=== PATIENT | male | born 1960 | race Caucasian/White ===

== ENCOUNTER 2016-11-23 15:18 | Emergency (ER) | payer BC ==
[~2016-11-23] VITALS: Ht 180.3 cm; Wt 88.5 kg
[2016-11-23 15:20] VITALS: BP 150/80; PULSE 90; RESP 17; TEMP 98.2; O2SAT 98
[2016-11-23 15:30] VITALS: O2SAT 99
[2016-11-23 15:33] VITALS: BP 155/86; PULSE 81; RESP 15; O2SAT 99
[2016-11-23] MEDS ORDERED: SODIUM CHLOR 0.9% 1000 ML INJ 1,000 ML IV ONE ×2 (15:45)
[2016-11-23] MEDS ORDERED: CYAN1TAB24 PO (15:46)
[2016-11-23] MEDS ORDERED: BENI40TA7 PO (15:46)
[2016-11-23] MEDS ORDERED: ZOLP12.5 PO (15:46)
[2016-11-23] MEDS ORDERED: DOLU1TAB PO (15:46)
[2016-11-23] MEDS ORDERED: SELE1TAB PO (15:46)
[2016-11-23] MEDS ORDERED: ENTE325T PO (15:46)
[2016-11-23] MEDS ORDERED: GLUC500T4 PO (15:46)
[2016-11-23] MEDS ORDERED: LOTR5CAP PO (15:46)
[2016-11-23] MEDS ORDERED: COQ150CA (15:46)
[2016-11-23] MEDS ORDERED: TYLE325T PO (15:46)
[2016-11-23] MEDS ORDERED: XARE20TA PO (15:46)
[2016-11-23] MEDS ORDERED: VALA1TAB PO (15:46)
[2016-11-23] MEDS ORDERED: FINA5TAB2 PO (15:46)
[2016-11-23] MEDS ORDERED: ATOR40TA16 PO (15:46)
[2016-11-23] MEDS ORDERED: [UNRECOGNIZED DRUG - CODE] PO (15:46)
[2016-11-23] MEDS ORDERED: VITA2000 PO (15:46)
[2016-11-23] MEDS ORDERED: VIAG100T PO (15:46)
[2016-11-23] MEDS ORDERED: LEXA10TA PO (15:46)
[2016-11-23] MEDS ORDERED: FOLI400T PO (15:46)
[2016-11-23] MEDS ORDERED: EMTR1TAB4 PO (15:46)
[2016-11-23] MEDS ORDERED: ANDROGEL TOPICAL (15:46)
[2016-11-23] MEDS ORDERED: OMEG1CAP28 PO (15:46)
--- NOTE | 2016-11-23 15:48 | PD ---
HPI Chief Complaint: General Weakness Time Seen by Provider: 15:36 Travel History International Travel<30 days: No Contact w/Intl Traveler<30days: No Traveled to known affect area: No History of Present Illness HPI 56-year-old male complains of generalized malaise and weakness and near- syncope. Patient states that he has been working outside in the yard since this morning. Patient started having feeling of generalized malaise and weakness and has a near-syncope episode. Patient states that he has not had much to drink today. Patient denies any headache. Patient denies any visual change. Patient denies any neck pain. Patient denies any chest pain or shortness of breath. Patient denies abdominal pain. Patient denies any nausea vomiting diarrhea. Patient denies any fever chills. Patient has history of HIV positive. Patient's on medication for that. Patient has history of CAD status post [place] and stents placement 8 years ago. PFSH Past Medical History Hx Anticoagulant Therapy: Yes (XERELTO) Autoimmune Disease: Yes (HIV +) Cardiovascular Problems: Yes (AK, 2 STENTS) Myocardial Infarction: Yes (WITH STENTS ) Social History Alcohol Use: Yes (1 beer a day) Tobacco Use: No Substance Use: No Allergies-Medications (Allergen,Severity, Reaction): Coded Allergies: No Known Allergies (Unverified , 11/23/16) Reported Meds & Prescriptions Reported Meds & Active Scripts Active Reported Tylenol (Acetaminophen) 325 Mg Tab 500 Mg PO Q6H PRN Viagra (Sildenafil Citrate) 100 Mg Tab 100 Mg PO DAILY PRN Zolpidem ER (Zolpidem Tartrate) 12.5 Mg Tab 12.5 Mg PO HS PRN Enteric Coated Aspirin (Aspirin) 325 Mg Tabdr 81 Mg PO DAILY B12 (Cyanocobalamin) 1,000 Mcg Tab 2,500 Tab PO DAILY Folic Acid 0.4 Mg Tab 400 Mcg PO DAILY Lexapro (Escitalopram Oxalate) 10 Mg Tab 10 Mg PO DAILY Xarelto (Rivaroxaban) 20 Mg Tab 20 Mg PO DAILY Atorvastatin (Atorvastatin Calcium) 40 Mg Tab 40 Mg PO HS Valacyclovir (Valacyclovir HCl) 1,000 Mg Tab 500 Mg PO DAILY Tivicay (Dolutegravir Sodium) 50 Mg Tab 50 Mg PO HS Descovy (Emtricitabine-Tenofovir Alafenamide) 200-25 mg Tab 1 Tab PO DAILY Glucosamine-Chondroitin 500-400 Mg Tab 1 Tab PO DAILY Coq10 (Coenzyme Q10 (Ubidecarenone)) 50 Mg Cap Beta Carotene 25,000 Unit Cap 25,000 Units PO DAILY Vitamin D3 (Cholecalciferol) 2,000 Unit Cap 2,000 Units PO DAILY Selenium 200 Mcg Tab 200 Mg PO DAILY [Androgel 1.62] 1 Appl TOPICAL DAILY [id number] Ethyl Esters 1 Gm Cap 1 Gm PO DAILY Lotrel 5-40 mg Capsule (Amlodipine Besylate/Benazepril) 5 Mg-40 Mg Capsule 1 Tab PO DAILY Benicar Hct (Olmesartan-Hydrochlorothiazide) 40-25 mg Tab 1 Tab PO DAILY Finasteride 5 Mg Tab 2.5 Mg PO DAILY Do not crush. Review of Systems General / Constitutional: No: Fever Eyes: No: Visual changes HENT: No: Headaches Cardiovascular: No: Chest Pain or Discomfort Respiratory: No: Shortness of Breath Gastrointestinal: No: Abdominal Pain Genitourinary: No: Dysuria Musculoskeletal: No: Pain Skin: No Rash Neurologic: No: Weakness Psychiatric: No: Depression Endocrine: No: Polydipsia Hematologic/Lymphatic: No: Easy Bruising Physical Exam Narrative GENERAL: Well-nourished, well-developed patient. SKIN: Focused skin assessment warm/dry. HEAD: Normocephalic. EYES: No scleral icterus. No injection or drainage. NECK: Supple, trachea midline. No JVD or lymphadenopathy. CARDIOVASCULAR: Regular rate and rhythm without murmurs, gallops, or rubs. RESPIRATORY: Breath sounds equal bilaterally. No accessory muscle use. GASTROINTESTINAL: Abdomen soft, non-tender, nondistended. MUSCULOSKELETAL: No cyanosis, or edema. BACK: Nontender without obvious deformity. No CVA tenderness. Neurologic exam normal. Data Data Last Documented VS Vital Signs Date Time Temp Pulse Resp B/P (MAP) Pulse Ox O2 Delivery O2 Flow Rate FiO2 11/23/16 15:33 81 15 155/86 (109) 99 Room Air 11/23/16 15:20 98.2 Orders Orders Sodium Chlor 0.9% 1000 Ml Inj (Ns 1000 M (11/23/16 15:45) Sodium Chlor 0.9% 1000 Ml Inj (Ns 1000 M (11/23/16 15:45) Electrocardiogram (11/23/16 15:37) Complete Blood Count With Diff (11/23/16 15:37) Comprehensive Metabolic Panel (11/23/16 15:37) Creatine Kinase (Cpk) (11/23/16 15:37) Troponin I (11/23/16:37) Prothrombin Time / Inr (Pt) (11/23/16 15:37) Act Partial Throm Time (Ptt) (11/23/16 15:37) Urinalysis - C+S If Indicated (11/23/16:37) Chest, Single Ap (11/23/16:37) Ct Brain W/O Iv Contrast(Rout) (11/23/16 15:37) Iv Access Insert/Monitor (11/23/16 15:37) Ecg Monitoring (11/23/16:37) Oximetry (11/23/16:) CKMB (11/23/16 15:45) CKMB% (11/23/16 15:45) Labs Laboratory Tests Test 11/23/16 15:45 White Blood Count 11.4 TH/MM3 Red Blood Count 5.02 MIL/MM3 Hemoglobin 16.6 GM/DL Hematocrit 48.7 % Mean Corpuscular Volume 96.9 FL Mean Corpuscular Hemoglobin 33.1 PG Mean Corpuscular Hemoglobin Concent 34.1 % Red Cell Distribution Width 12.9 % Platelet Count 189 TH/MM3 Mean Platelet Volume 8.4 FL Neutrophils (%) (Auto) 72.8 % Lymphocytes (%) (Auto) 20.1 % Monocytes (%) (Auto) 6.1 % Eosinophils (%) (Auto) 0.7 % Basophils (%) (Auto) 0.3 % Neutrophils # (Auto) 8.3 TH/MM3 Lymphocytes # (Auto) 2.3 TH/MM3 Monocytes # (Auto) 0.7 TH/MM3 Eosinophils # (Auto) 0.1 TH/MM3 Basophils # (Auto) 0.0 TH/MM3 CBC Comment AUTO DIFF Differential Comment AUTO DIFF CONFIRMED Prothrombin Time 11.0 SEC Prothromb Time International Ratio 1.0 RATIO Activated Partial Thromboplast Time 26.1 SEC Blood Urea Nitrogen 25 MG/DL Creatinine 1.62 MG/DL Random Glucose 84 MG/DL Total Protein 7.5 GM/DL Albumin 3.9 GM/DL Calcium Level 9.2 MG/DL Alkaline Phosphatase 47 U/L Aspartate Amino Transf (AST/SGOT) 44 U/L Alanine Aminotransferase (ALT/SGPT) 68 U/L Total Bilirubin 0.3 MG/DL Sodium Level 139 MEQ/L Potassium Level 3.9 MEQ/L Chloride Level 106 MEQ/L Carbon Dioxide Level 25.7 MEQ/L Anion Gap 7 MEQ/L Estimat Glomerular Filtration Rate 44 ML/MIN Total Creatine Kinase 903 U/L Creatine Kinase MB 8.2 NG/ML Creatine Kinase MB % 0.9 % Troponin I LESS THAN 0.02 NG/ML MDM Medical Decision Making Medical Screen Exam Complete: Yes Emergency Medical Condition: Yes Interpretation(s) Last Impressions Head CT 11/23/161536 Signed Impressions: Service Date/Time: Wednesday, November 23, 2016 17:09 - CONCLUSION: Normal examination. eRji Chu Jr., MD Chest X-Ray 11/23/161536 Signed Impressions: Service Date/Time: Wednesday, November 23, 2016 16:08 - CONCLUSION: No acute disease. Denzel Min MD FACR 1756 PM. CBC WBC 11.4. 72 neutrophil. BUN 25 Grennan 1.62. AST 44. Total CK 903. Cardiac enzymes are normal. Differential Diagnosis Differential diagnosis including his stroke, heat exhaustion, dehydration, electrolyte imbalance, TIA, CVA, AK. Narrative Course 56-year-old male with generalized malaise and weakness and near-syncope. Normal saline solution 2 L IV bolus. 18:13 PM. Patient feeling much better. Patient will be discharged home. Diagnosis Primary Impression: Heat stroke Qualified Codes: T67.0XXA - Heatstroke and sunstroke, initial encounter Additional Impression: Rhabdomyolysis Qualified Codes: M62.82 - Rhabdomyolysis Patient Instructions: General Instructions Additional Instructions: Encourage by mouth fluids. Follow-up with personal physician. Rest in cool place. Follow-up with personal physician. Return if persistent problem worse. Med/Other Pt SpecificInfo: No Change to Meds Disposition: 01 DISCHARGE HOME Condition: Stable Jose E Kerr MD Nov 23, 2016 15:48
[2016-11-23 16:20] LABS: AUTOMATED NEUTROPHIL # 8.3 TH/MM3 (1.8-7.7); BASOPHIL % 0.3 % (0.0-2.0); EOSINOPHIL # 0.1 TH/MM3 (0-0.4); EOSINOPHIL % 0.7 % (0.0-4.0); HEMATOCRIT 48.7 % (39.0-51.0); LYMPH % 20.1 % (9.0-44.0); LYMPHOCYTE # 2.3 TH/MM3 (1.0-4.8); MEAN CELL VOLUME 96.9 FL (80.0-100.0); MEAN CORPUSCULAR HEMOGLOBIN 33.1 PG (27.0-34.0); MEAN CORPUSCULAR HGB CONC 34.1 % (32.0-36.0); MONO % 6.1 % (0.0-8.0); NEUT % 72.8 % (16.0-70.0); PLATELET COUNT 189 TH/MM3 (150-450); RED BLOOD COUNT 5.02 MIL/MM3 (4.50-5.90); RED CELL DISTRIBUTION WIDTH 12.9 % (11.6-17.2); WHITE BLOOD COUNT 11.4 TH/MM3 (4.0-11.0)
--- NOTE | 2016-11-23 16:20 | RADRPT ---
EXAM DATE/TIME: 11/23/2016 16:08 [facility] COMPARISON: No previous studies available for comparison. INDICATIONS : Shortness of breath. MEDICAL HISTORY : HIV Myocardial infarction. SURGICAL HISTORY : Two stents. ENCOUNTER: Initial ACUITY: 1 day PAIN SCORE: 0/10 LOCATION: Bilateral chest FINDINGS: A single view of the chest demonstrates the lungs to be symmetrically aerated without evidence of mas s, infiltrate or effusion. The cardiomediastinal contours are unremarkable. Osseous structures are intact. CONCLUSION: No acute disease. Denzel Min MD FACR on November 23, 2016 at 16:17 Board Certified Radiologist. This report was verified electronically.
[2016-11-23 16:23] LABS: HEMO FLAGS AUTO DIFF
[2016-11-23 16:25] LABS: APTT (PATIENT) 26.1 SEC (24.3-30.1)
[2016-11-23 16:38] LABS: ANION GAP 7 MEQ/L (5-15); AST (GOT) 44 U/L (15-37); BICARBONATE 25.7 MEQ/L (21.0-32.0); BLOOD UREA NITROGEN 25 MG/DL (7-18); CHLORIDE 106 MEQ/L (98-107); GLOMERULAR FILTRATION RATE 44 ML/MIN (>89); POTASSIUM 3.9 MEQ/L (3.5-5.1); SODIUM (NA) 139 MEQ/L (136-145)
[2016-11-23 16:43] LABS: ALKALINE PHOSPHATASE 47 U/L (45-117); ALT (GPT) 68 U/L (12-78); CREATINE KINASE 903 U/L (39-308); TOTAL BILIRUBIN ADULT 0.3 MG/DL (0.2-1.0)
[2016-11-23 16:55] LABS: CKMB 8.2 NG/ML (0.5-3.6)
[2016-11-23 16:57] LABS: SCAN/DIFF AUTO DIFF CONFIRMED
--- NOTE | 2016-11-23 17:32 | RADRPT ---
EXAM DATE/TIME: 11/23/2016 17:09 [facility] COMPARISON: No previous studies available for comparison. INDICATIONS : Syncope today. RADIATION DOSE: 49.82 CTDIvol (mGy) MEDICAL HISTORY : Myocardial infarction. HIV. SURGICAL HISTORY : cardiac stent placement ENCOUNTER: Initial ACUITY: 1 day PAIN SCALE: 0/10 LOCATION: Bilateral head TECHNIQUE: Multiple contiguous axial images were obtained of the head. Using automated exposure control and adj ustment of the mA and/or kV according to patient size, radiation dose was kept as low as reasonably a chievable to obtain optimal diagnostic quality images. DICOM format image data is available electro nically for review and comparison. FINDINGS: CEREBRUM: The ventricles are normal for age. No evidence of midline shift, mass lesion, hemorrhage or acute in farction. No extra-axial fluid collections are seen. POSTERIOR FOSSA: The cerebellum and brainstem are intact. The 4th ventricle is midline. The cerebellopontine angle i s unremarkable. EXTRACRANIAL: The visualized portion of the orbits is intact. SKULL: The calvaria is intact. No evidence of skull fracture. CONCLUSION: Normal examination. Reji Chu Jr., MD on November 23, 2016 at 17:30 Board Certified Radiologist. This report was verified electronically.
--- NOTE | 2016-11-24 14:08 | EKG ---
Date Performed: 11/23/2016 Time Performed: 15:39:35 PTAGE: 56 years EKG: Sinus rhythm MODERATE INTRAVENTRICULAR CONDUCTION DELAY NONSPECIFIC ST & T-WAVE ABNORMALITY ABNORMAL ECG NO PREVIOUS TRACING DOCTOR: Irina Mccarthy Interpretating Date/Time 11/24/2016 14:06:03
== END 2016-11-23 19:32 | disposition home or self-care (01) ==
LOC: NEPE 15:18
DX: T67.0XXA Heatstroke and sunstroke, initial encounter (principal); M62.82 Rhabdomyolysis; R55 Syncope and collapse; Z79.01 Long term (current) use of anticoagulants; R94.31 Abnormal electrocardiogram [ECG] [EKG]
CPT/HCPCS: 70450; 71010; 80053; 82550; 82552; 84484; 85025; 85610; 85730; 93005; 96360; 96361; 99285; J7030